=== PATIENT | female | born 1980 | race Caucasian/White ===

== ENCOUNTER 2023-02-13 11:06 | Emergency (ER) | payer OTHER, SELFPAY ==
--- NOTE | ~2023-02-13 | XR_ITS ---
Right Humerus Technique: AP and lateral views were obtained. Clinical History: Pain Findings: No fracture or dislocation is seen. Osseous alignment is anatomic. Visualized joint spaces are grossly preserved. Soft tissues are unremarkable. Impression: Unremarkable examination. No fracture or dislocation. Reviewed, dictated and finalized at location . Impression: Unremarkable examination. No fracture or dislocation.
--- NOTE | ~2023-02-13 | XR_ITS ---
Right elbow Technique: AP and lateral views were obtained. Clinical History: Pain Findings: No acute fracture or dislocation is seen. Osseous alignment is anatomic. Joint spaces are p reserved. There is no displacement of the fat pads, and soft tissues are unremarkable. Impression: Unremarkable radiographs. Reviewed, dictated and finalized at location . Impression: Unremarkable radiographs.
--- NOTE | ~2023-02-13 | CT_ITS ---
EXAMINATION: CT brain wo con DATE: 02/13/2023 12:35 INDICATION: Head injury. Headache. TECHNIQUE: Computed tomography (CT) of the head was performed without intravenous contrast. The mA wa s adjusted according to patient size. Iterative reconstruction technique was employed. The dose-lengt h product was 605.33 mGy-cm. COMPARISON: None FINDINGS: There is a 3 mm hyperdense colloid cyst in the anterior third ventricle. There is no intrac ranial hemorrhage or acute ischemic infarct. The ventricles are normal in size. There is mild mucosal thickening in the paranasal sinuses. The mastoid air cells are normal. There is cerumen in the exter nal auditory canals. The orbits are normal. IMPRESSION: 1. 3 mm colloid cyst in the third ventricle. Reviewed, dictated and finalized at location A.
--- NOTE | ~2023-02-13 | XR_ITS ---
AP view of the pelvis and AP and lateral views of the right hip Clinical history: Pain Findings: No acute fracture or dislocation is seen. Osseous alignment is anatomic. Bilateral hip and SI joint spaces are preserved. Soft tissues are unremarkable. Impression: No significant abnormality is seen. Reviewed, dictated and finalized at [facility]. Impression: No significant abnormality is seen.
--- NOTE | ~2023-02-13 | XR_ITS ---
Left Humerus Technique: AP and lateral views were obtained. Clinical History: Pain Findings: No fracture or dislocation is seen. Osseous alignment is anatomic. Visualized joint spaces are grossly preserved. Soft tissues are unremarkable. Impression: Unremarkable examination. No fracture or dislocation. Reviewed, dictated and finalized at location . Impression: Unremarkable examination. No fracture or dislocation.
--- NOTE | ~2023-02-13 | XR_ITS ---
EXAMINATION: XR knee LT min 4V DATE: 02/13/2023 12:50 INDICATION: Left knee injury. TECHNIQUE: 4 views of left knee were obtained. COMPARISON: None. FINDINGS: Bone alignment is normal. No fracture. Joint spaces are well maintained. There is no knee j oint effusion. IMPRESSION: 1. Normal left knee. Reviewed, dictated and finalized at location A. IMPRESSION: 1. Normal left knee.
[2023-02-13 11:08] VITALS: BP 124/87; PULSE 93; RESP 18; TEMP 36.5; O2SAT 99
--- NOTE | 2023-02-13 11:53 | ECG_ITS ---
Measurements Intervals [place] Rate: 92 P: 51 HI: 153 QRS: 5 QRSD: 73 T: 32 QT: 364 QTc: 451 Interpretive Statements SINUS RHYTHM LOW QRS VOLTAGE IN PRECORDIAL LEADS [QRS DEFLECTION < 1.0 mV IN CHEST LEADS] POOR R-WAVE PROGRSSION NO PREVIOUS ECG AVAILABLE FOR COMPARISON Electronically Signed On 02-13-2023 16:27:34 CDT by Rinku Al M.D.
--- NOTE | 2023-02-13 11:57 | ED.FALL ---
HPI - Fall General Chief Complaint: Fall Stated Complaint: fall with dizziness Time Seen by Provider: 02/13/23 11:20 History of Present Illness HPI Narrative: 42-year-old female with history of schizophrenia and bipolar disorder reports for evaluation after she fell backwards off of a picnic table while trying to get up from picnic table. Reports she hit her head on the concrete and is reporting frontal headache, pain to her left humerus, pain to her right humerus and elbow, pain to her left knee and pain to her right hip. She is unsure if she lost consciousness. Patient reports she felt dizzy prior to fall, has been feeling dizzy since she was started on a new medication a few days ago starting with an L, She is unsure of the name of the medication. She denies CP, SOB, headache, vision changes prior to fall. Denies focal numbness or weakness, nausea, vomiting, diarrhea, amnesia, neck pain, abdominal pain, back pain. She is able to ambulate. LMP today, 02/13. Related Data Allergies Allergy/AdvReac Type Severity Reaction Status Date / Time latex Allergy Unknown Anaphylaxis Verified 02/13/23 17:41 divalproex sodium Allergy Anaphylaxis Verified 02/13/23 17:41 [From Depakote] nitrofurantoin Allergy Hives Verified 02/13/23 17:41 [From Macrobid] Review of Systems Review of Systems: CONSTITUTIONAL: Denies fever, chills EYES: Denies visual changes, redness, or discharge. ENT: Denies rhinorrhea, congestion, sore throat, or otalgia. CARDIOVASCULAR: Denies chest pain, palpitations, or edema. RESPIRATORY: Denies cough or dyspnea. GASTROINTESTINAL: Denies abdominal pain, nausea, vomiting, or diarrhea. GENITOURINARY: Denies dysuria or hematuria. SKIN: Denies rash or itching. MUSCULOSKELETAL: See HPI NEUROLOGIC: See HPI. PSYCHIATRIC: Denies anxiety or depression. PMFSH Family History Family History Father Family history of epilepsy Sibling Family history of seizure disorder Social History Social History Smoking status: Never smoker Alcohol intake: never Exam Narrative: GENERAL: Well-appearing, well-nourished, and in no acute distress. Patient resting comfortably in exam bed. She is pleasant and conversational. GCS 15 HEAD: Normocephalic, atraumatic. No abrasion, lacerations or hematomas. No raccoon eyes or perez signs. EYES: PERRLA and EOMI. No nystagmus. ENT: Nares clear, no rhinorrhea or epistaxis. Mucous membranes moist. Oropharynx without tonsillar hypertrophy exudate or other lesions. Bilateral cerumen impaction. NECK: Supple. No adenopathy or masses. No midline cervical spine tenderness, step-offs or deformities. Full range of motion of neck without pain. CHEST: Clear to auscultation. No respiratory distress. No wheezes rales or rhonchi HEART: Regular rate and rhythm. No murmur heard. Normal peripheral pulses. ABDOMEN: Soft, nontender, nondistended, normal active bowel sounds. No CVA tenderness. EXTREMITIES: LUE: Tenderness to the mid humerus. No tenderness to remaining extremity. Full range of motion to upper extremity. No overlying skin changes. RUE: Tenderness to mid humerus and olecranon. No tenderness to remaining extremity. Full range of motion to upper extremity. No overlying skin changes. Hips/Pelvis: No tenderness to palpation. Full ROM of hip. Tenderness to groin and proximal femur elected with R hip flexion. No overlying skin changes. LLE: Tenderness to palpation of lateral and inferior knee. No overlying skin changes. No edema. Negative anterior posterior drawer. No laxity with varus or valgus stress. Full range of motion of knee and remaining extremity. RLE: No tenderness to palpation of extremity. Full range of motion of the remaining extremity. DP and radial pulses 2+ bilaterally. Sensation intact throughout. Strength 5 out of 5 in bilateral and upper lower extremities. SKI
[2023-02-13 12:36] LABS: Basophils Percent Auto 0.3 % (0.2-1.2); Eosinophils Absolute Auto 0.1 K/mm3 (0-0.3); Eosinophils Percent Auto 1.7 % (0-4.4); Hematocrit 42.6 % (37.0-47.0); Hemoglobin 14.1 g/dL (12.0-15.0); Immature Granulocyte Absolute 0.02 K/mm3 (0.00-0.031); Immature Granulocyte Percent A 0.3 % (0-0.5); Lymphocytes Absolute Auto 1.84 K/mm3 (0.9-3.2); Lymphocytes Percent Auto 24.3 % (18.3-44.2); Mean Corpuscular HGB Conc 33.1 g/dl (32-36); Mean Corpuscular Hemoglobin 27.5 pg (26-34); Mean Platelet Volume 11.4 fl (7.4-10.4); Monocytes Absolute Auto 0.4 K/mm3 (0.1-0.6); Monocytes Percent Auto 5.5 % (2.6-8.5); Neutrophils Absolute Auto 5.2 K/mm3 (1.3-6.7); Neutrophils Percent Auto 67.9 % (45.5-73.1); Platelet Count Result 199 k/mm3 (150-375); Red Blood Count 5.13 M/mm3 (4.2-5.4); Red Cell Distribution Width 13.2 % (11.5-14.5); White Blood Count 7.6 K/mm3 (4.5-10.0)
[2023-02-13 12:43] LABS: Bacteria Urine 1+ /hpf; Non Pathogenic Casts 0-2; RBC Urine 51-100 /hpf (0-2); Squamous Epithelial Cell Urine Few /hpf (Few); WBC Urine 21-50 /hpf
[2023-02-13 12:46] LABS: Alanine Aminotransferase 29 U/L (6-35); Albumin Level 4.5 g/dL (3.5-5.1); Alkaline Phosphatase 97 U/L (38-126); Anion Gap 7 mmol/L (8-16); Aspartate Amino Transferase 35 U/L (14-36); Bilirubin,Total 0.5 mg/dL (0.2-1.3); Blood Urea Nitrogen 8 mg/dL (7-17); Carbon Dioxide 29 mmol/L (22-30); Chloride 103 mmol/L (98-107); Estimated CRCL calculation 98 ml/min; Estimated Glomerular Filt Rate > 60; Glucose 88 mg/dL (65-110); Potassium 3.9 mmol/L (3.4-5.0); Sodium 139 mmol/L (137-145)
[2023-02-13 12:50] LABS: Appearance Urine Cloudy (Clear); Bilirubin Urine Negative (Negative); Blood Urine 3+ (Negative); Glucose Urine UA Negative (Negative); Ketones Urine Negative (Negative); Leukocyte Esterase Ur 1+ LEU/UL (Negative); Nitrate Urine Negative (Negative); Protein Urine 2+ mg/dL (Negative); Specific Grav Ur 1.006 (1.001-1.035); Urobilinogen Urine 0.2 mg/dL (<2.0); pH Urine 8.5 (5.0-9.0)
[2023-02-13 12:52] LABS: Color Urine Light Orange (Yellow)
[2023-02-13] MEDS: CYCLOBENZAPRINE HCL 10 MG TABLET PO (12:52)
[2023-02-13] MEDS: MECLIZINE HCL 25 MG TABLET PO (12:52)
[2023-02-13] MEDS: ACETAMINOPHEN 500 MG TABLET 1000 MG PO (12:52)
[2023-02-13 12:53] VITALS: BP 117/83; PULSE 82
[2023-02-13 12:53] LABS: Add Urine Microscopic? YES
[2023-02-13] MEDS: SODIUM CHLORIDE 0.9% IV 1,000 ML 999 ML IV CONT (12:53)
[2023-02-13 12:56] VITALS: BP 118/83; PULSE 96
[2023-02-13 12:56] LABS: Troponin I < 0.012 ng/mL (0.000-0.034)
[2023-02-13 12:58] VITALS: BP 109/78; PULSE 97
--- NOTE | 2023-02-13 17:19 | PC.NURSE ---
[facility] is sending cab to [facility] patient.
== END 2023-02-13 17:57 | disposition home or self-care (01) ==
PROVIDERS: Emergency Provider Physician Assistant; PCP Physician Assistant Medical
DX: S83.92XA Sprain of unspecified site of left knee, initial encounter (principal); N30.01 Acute cystitis with hematuria; G93.0 Cerebral cysts; R94.31 Abnormal electrocardiogram [ECG] [EKG]; W17.89XA Other fall from one level to another, initial encounter
CPT/HCPCS: 36415; 70450; 73060; 73070; 73502; 73564; 80053; 81001; 81025; 84484; 85025; 87086; 93005; 96360; 96361; 99284; A9270; J7030